=== PATIENT | female | born 1960 | race Caucasian/White ===

== ENCOUNTER 2022-02-26 14:17 | Outpatient (CLI) | payer OTHER, SELFPAY ==
--- NOTE | ~2022-02-26 | MM_ITS ---
EXAMINATION: MM screening [facility] BI w janene HISTORY: Screening mammogram TECHNIQUE: Craniocaudal and mediolateral oblique 3-D tomosynthesis images were obtained and synthetic 2-D images were generated. CAD analysis was submitted and interpreted. COMPARISON: 12/23/2018, 11/23/2018, 10/20/2017 BREAST PARENCHYMAL COMPOSITION: The breasts are almost entirely fatty. FINDINGS: No suspicious mass, calcification, or architectural distortion are identified in either rigo ast to suggest malignancy. There has been no suspicious interval change. IMPRESSION: 1. No mammographic evidence of malignancy. 2. Recommend routine screening mammography in one year. BI-RADS Category 1: Negative Reviewed, dictated and finalized at location A.
== END 2022-02-26 14:18 | disposition home or self-care (01) ==
LOC: CHSIMG 14:22
DX: Z12.31 Encounter for screening mammogram for malignant neoplasm of breast (principal)
CPT/HCPCS: 77063; 77067

== ENCOUNTER 2022-03-07 15:22 | Emergency (ER) | payer OTHER, SELFPAY ==
[2022-03-07] VITALS (18 sets, daily range): BP systolic 108–137; BP diastolic 71–108; PULSE 85–170; RESP 12–29; TEMP 36.8–36.9; O2SAT 90–97
--- NOTE | ~2022-03-07 | XR_ITS ---
XR chest 2V DATE: 03/07/2022 18:20 INDICATION: Rapid tachycardia. Cough. TECHNIQUE: PA and lateral views COMPARISON: 05/03/2019 portable AP chest FINDINGS: Normal heart size. No hilar or mediastinal enlargement. No pulmonary infiltrate or consolid ation, pleural effusion or pulmonary vascular congestion or pneumothorax. Diffuse idiopathic skeletal hyperostosis of the thoracic spine. Surgical clips, right upper quadrant, consistent with cholecystectomy. 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 Reviewed, dictated and finalized at location A.
[2022-03-07] MEDS: ADENOSINE IV SOLN 6 MG/2 ML VIAL IV PUSH (15:40)
--- NOTE | 2022-03-07 15:40 | ECG_ITS ---
Measurements Intervals [place] Rate: 167 P: 106 TN: 91 QRS: 12 QRSD: 82 T: -83 QT: 273 QTc: 455 Interpretive Statements ATRIAL FLUTTER/TACHYCARDIA WITH RAPID VENTRICULAR RESPONSE ST ABNORMALITY IN ANTEROLATERAL LEADS- CONSIDER ISCHEMIA OR RATE RELATED BASELINE ARTIFACT- I, II, AVR, AVF ABNORMAL ECG NO PREVIOUS ECG AVAILABLE FOR COMPARISON Electronically Signed On 03-07-2022 21:38:22 CDT by Aurelio Christie D.O.
[2022-03-07] MEDS: ADENOSINE IV SOLN 6 MG/2 ML VIAL 12 MG IV PUSH (15:48)
--- NOTE | 2022-03-07 15:51 | ED.ARRPALP ---
HPI - Arrhythmia/Palpitations General Chief Complaint: Arrhythmia/Palpitations Stated Complaint: racing heart Time Seen by Provider: 03/07/22 15:25 Source: patient and RN notes reviewed Mode of arrival: ambulatory Limitations: no limitations History of Present Illness complaint: heart racing and palpitations Onset (ago): hour(s) (12) Duration: constant Severity: similar to previous episodes Context: awoke with symptoms Arrhythmia history: SVT Associated symptoms: shortness of breath and cough Treatments prior to arrival: vagal maneuvers Related Data Home Medications Medication Instructions Recorded Confirmed clorazepate dipotassium 7.5 mg 7.5 mg PO PRN anxiety 03/07/22 03/07/22 tablet levothyroxine 25 mcg tablet 25 mcg PO DAILY 03/07/22 03/07/22 lorazepam 1 mg tablet 1 mg PO PRN PRN Anxiety 03/07/22 03/07/22 metoprolol tartrate 25 mg tablet 25 mg PO BID 03/07/22 03/07/22 Allergies Allergy/AdvReac Type Severity Reaction Status Date / Time No Known Allergies Allergy Verified 03/07/22 15:52 Review of Systems Review of Systems: All systems reviewed & are unremarkable except as noted in HPI and below Cardiovascular: Cardiovascular: Denies chest pain Respiratory: Respiratory: Reports as per HPI [facility] Past Medical History Medical History (Updated 03/07/22 @ 18:44 by Harsha Contreras MD) Benign essential HTN (07/14/17) DREW (generalized anxiety disorder) (07/14/17) Hypothyroidism (08/19/17) SVT (supraventricular tachycardia) Surgical History Surgical History (Updated 03/07/22 @ 18:43 by Harsha Contreras MD) History of section Hx of cholecystectomy Family History Family History Father Hypertension Family history of coronary artery disease Social History Social History Smoking status: Never smoker Second hand tobacco smoke exposure: No Alcohol intake: never Substance use: current Substance use type: prescription drug Has the Lack of Transportation Kept You From Medical Appointments or From Getting Medications?: No Within the Past 12 Months, Were You Worried Whether Your Food Would Run Out Before You Got Money to Buy More?: Never True What is Your Housing Situation Today?: I Have Housing Are You Worried That in the Next 2 Months, You May Not Have Your Own Housing to Live In?: No Do You Have Trouble Paying Your Heating Or Electricity Bill?: No Do You Have Trouble Paying For Medicines?: No Are You Currently Unemployed and Looking for Work?: No Highest Level of Education Completed: High School Diploma/GED Do You Have Trouble With Childcare or the Care of a Family Member?: No Spiritual care concerns: No Exam Const: General: no acute distress, alert and ill appearing acutely Nutritional Appearance: well nourished Orientation/consciousness: patient oriented x3 Limitations: no limitations HENMT: Ears: external ears normal Face/Nose/Sinus: Normal external nose present Face and sinus: normal facial exam Mouth: Yes moist mucous membranes Eyes: Conjunctivae: conjunctivae normal Pupils: Equal, round and reactive pupils present EOM: EOMs intact bilaterally Neck: Neck: normal visual inspection Resp: Effort & Inspection: normal respiratory effort Auscultation: clear to auscultation bilaterally Cardio: Rate: tachycardic Rhythm: regular rhythm GI: GI Palp: Yes Soft to palpation and No Tenderness to palpation present (GI) Auscultation: normal bowel sounds Back/Spine/Pelvis: Cervical Spine: cervical ROM normal Thoracic/Lumbar Spine: thoraco-lumbar ROM normal Skin: General skin exam: normal color Rashes: no rashes Neuro: General: patient oriented x3, moves all extremities, no focal motor deficits and CN's II-XI intact bilaterally Speech: normal speech Gait exam (Neuro): Normal gait present Extrem: General: normal to inspection and no clubbing, cyanos
[2022-03-07] MEDS: dilTIAZem HCl INJ 25 MG/5 ML VIAL 20 MG IV PUSH (15:57)
[2022-03-07] MEDS: dilTIAZem 100 MG/100 ML 100 MG/100 ML BAG 10 MG IV CONT (16:11)
[2022-03-07 16:30] LABS: Hematocrit 43.6 % (35.0-49.0); Hemoglobin 14.7 g/dL (12.0-15.0); Mean Corpuscular HGB Conc 33.7 g/dL (32.0-36.0); Mean Corpuscular Hemoglobin 28.2 pg (27.0-31.0); Mean Corpuscular Volume 83.5 fL (78.0-102.0); Mean Platelet Volume 9.4 fl (9.2-11.8); Platelet Count Result 203 K/mm3 (150-420); Red Blood Count 5.22 M/mm3 (4.20-5.40); Red Cell Distribution Width 12.9 % (11.6-14.4); White Blood Count 4.6 K/mm3 (4.8-10.8)
[2022-03-07 16:55] LABS: Alanine Aminotransferase 48 U/L (14-59); Albumin Level 3.5 g/dL (3.4-5.0); Alkaline Phosphatase 75 U/L (46-116); Anion Gap 11 mmol/L (8-16); Aspartate Amino Transferase 25 U/L (15-37); Band Neutrophils Percent 0 % (0-6); Basophils Percent Manual 0 % (0-1); Bilirubin,Total 0.4 mg/dL (0.00-1.00); Blood Urea Nitrogen 10 mg/dL (7-18); Calcium 9.1 mg/dL (8.5-10.1); Carbon Dioxide 26 mmol/L (21-32); Chloride 102 mmol/L (98-108); Eosinophils Absolute Manual 0.04 K/mm3 (0.02-0.5); Eosinophils Percent Manual 1 % (1-6); Estimated Glomerular Filt Rate 54; Glucose 97 mg/dL (70-99); Lymphocytes Absolute Manual 2.02 K/mm3 (1.1-4.5); Lymphocytes Percent Manual 44 % (18-44); Magnesium 1.7 mg/dL (1.8-2.4); Monocytes Absolute Manual 0.41 K/mm3 (0.1-0.90); Monocytes Percent Manual 9 % (3-9); NT Pro B Type Natriuretic Pept 617 pg/mL (0-125); Neutrophils Absolute Manual 2.11 K/mm3 (1.7-7.2); Neutrophils Percent Manual 46 % (46-73); Osmolality Calculated 287 mOsm/kg (285-295); Platelet Estimate Adequate (Adequate); Potassium 3.5 mmol/L (3.5-5.1); Sodium 139 mmol/L (136-145); Total Cells Counted 100; Total Protein 7.8 g/dL (6.4-8.2)
[2022-03-07 16:56] LABS: Atypical Lymphocytes Present
[2022-03-07 16:58] LABS: Troponin I 1443.8 ng/L (0.00-60.4)
[2022-03-07] MEDS: dilTIAZem HCl INJ 25 MG/5 ML VIAL IV PUSH (17:16)
[2022-03-07 17:25] LABS: Thyroid Stimulating Hormone 3.21 uIU/mL (0.36-3.74)
--- NOTE | 2022-03-07 17:38 | ECG_ITS ---
Measurements Intervals [place] Rate: 100 P: [place]: 0 QRS: 1 QRSD: 84 T: 63 QT: 343 QTc: 444 Interpretive Statements ATRIAL FLUTTER/TACHYCARDIA WITH RAPID VENTRICULAR RESPONSE LOW QRS VOLTAGE IN PRECORDIAL LEADS CANNOT RULE OUT SEPTAL INFARCT, AGE INDETERMINATE BORDERLINE ST-T WAVE ABNORMALITY- HIGH LATERAL LEADS ABNORMAL ECG COMPARED TO ECG 03/07/2022 15:40:15 HEART RATE HAS DECREASED MYOCARDIAL INFARCT FINDING NOW PRESENT Electronically Signed On 03-07-2022 21:39:51 CDT by Aurelio Christie D.O.
[2022-03-07] MEDS: ENOXAPARIN 100 MG/ML SYRINGE SUB-Q (18:19)
[2022-03-07] MEDS: BENZONATATE 100 MG CAPSULE 200 MG PO (19:07)
--- NOTE | 2022-03-07 19:21 | PC.NURSE ---
1830 meal provided, 1840 ate couple bites from sandwich and few chips. drank soda
== END 2022-03-07 19:24 | disposition short-term general hospital (02) ==
PROVIDERS: Emergency Provider Emergency Medicine
DX: I48.92 Unspecified atrial flutter (principal); R79.9 Abnormal finding of blood chemistry, unspecified; R06.02 Shortness of breath
CPT/HCPCS: 36415; 71046; 80053; 83735; 83880; 84443; 84484; 85025; 93005; 96365; 96366; 96372; 96375; 99285; A9270; J0153; J1650

== ENCOUNTER 2022-03-07 21:48 | Inpatient (IN) | payer OTHER, SELFPAY ==
--- NOTE | ~2022-03-07 | CT_ITS ---
EXAMINATION: CT diagnostic chest wo con DATE: 03/09/2022 12:42 INDICATION: persistent cough, abnl exam, negative chest xr TECHNIQUE: Computed tomography (CT) of the chest was performed without intravenous contrast. Automate d exposure control and iterative reconstruction technique were employed. The dose-length product was 551.48 mGy-cm. COMPARISON: None. FINDINGS: CHEST: Thoracic aorta: No significant dilation. Minimal arch calcification. Lung parenchyma and airways: Centrilobular groundglass opacities in the right lower lobe. Left basila r scar/atelectasis. Thoracic inlet, axillae and chest wall: No thyroid or soft tissue mass. No axillary lymphadenopathy. Mediastinum: No mass or lymphadenopathy. Heart and pericardium: Normal heart size. No pericardial effusion. Coronary artery calcifications: Absent. Pleura: No effusion or mass. Upper abdomen: No significant finding. Thoracic bones: No acute osseous finding in the chest. IMPRESSION: Right lower lobe opacities may represent atypical/infectious airways disease, bronchiolitis, or aspir ation. Reviewed, dictated and finalized at location K. GER IMPRESSION: Right lower lobe opacities may represent atypical/infectious airways disease, b ronchiolitis, or aspiration.
[2022-03-07 20:05] VITALS: BP 126/80; PULSE 91; RESP 20; TEMP 36.2; O2SAT 94; BMI 37.1
[2022-03-07 20:18] VITALS: BMI 37.8
--- NOTE | 2022-03-07 21:54 | PM.IMHP ---
H&P: HPI History of Present Illness Date/Time: 03/07/22 21:54 Chief Complaint: Arrhythmia palpitations. Narrative: This is a 62-year-old female patient who has a history of atrial flutter/atrial fib. And SVT. The patient has been on metoprolol and has been taking it faithfully. The patient stated that she used to go to Dr. Gardner but he no longer takes her insurance. The patient has been trying to get into but they are waiting for her records from Dr. North. The patient stated that she occasionally has SVT and usually last about an hour so and she is able to drink some cold water calm herself down and get the heart rate back into rhythm. Yesterday she said that she felt that she was in SVT from 8:00 to 9:00 a.m. came out of it. This morning she woke up at 3:20 a.m. this morning and she took her metoprolol at the normal time and tried the ice water and try to relax she then decided to go to [facility] at 4:00 p.m. this evening. She felt her heart racing and was having palpitations. She also was short of breath and she did try the vagal maneuver which did not work. Initially patient was given adenosine 6 mg IV push that did lower her heart rate but did not convert her. They gave her 2nd dose of adenosine at 12 mg and had no fact on her heart rate. The patient was given 20 mg of IV Cardizem and brought her rate down into the 90s. That her heart rate jumped back up in the 160s. Her Cardizem drip was increased from 10 mg and titrated up to 15 mg. She was then re bolused with Cardizem 25 mg and brought her heart rate down 80s and 90s. Patient continued with a Cardizem drip up to 15 milligrams/hour. She also received 100 mg of subcu Lovenox at [facility]. I did not speak to the attending however Dr. Villa spoke to the attending in accepted the patient. EN route to the hospital here at [facility] the patient was given another dose of adenosine 6 mg. Upon arrival her Cardizem drip ran out and she was bouncing back and forth between status rhythm and atrial flutter. We will resume her Cardizem drip. The patient is being admitted to inpatient status on the date of service of 03/07/2022. Review of Systems Review of Systems: See HPI All systems reviewed & are unremarkable except as noted in HPI and below Constitutional: Constitutional: Reports as per HPI and Reports no additional constitutional complaints Eyes: Eyes: Reports as per HPI and Reports no additional eye complaints ENT: Reports system reviewed and no additional complaints, except as documented and Reports Normal hearing present Cardiovascular: Cardiovascular: Reports no additional cardiovascular complaints Respiratory: Respiratory: Reports no additional respiratory complaints and Reports no additional respiratory complaints Gastrointestinal: Gastrointestinal: Reports as per HPI and Reports no additional gastrointestinal complaints Musculoskeletal: Musculoskeletal: Reports no additional musculoskeletal complaints Integumentary/Breasts: Skin/Breast: Reports system reviewed and no additional complaints, except as docu and Reports as per HPI Neurologic: Reports system reviewed and no additional complaints, except as documented, Reports as per HPI and Reports Normal hearing present Psychiatric: Psychiatric: Reports no additional psychiatric complaints and Reports as per HPI Endocrine: Endocrine: Reports no additional endocrine complaints Hematologic/Lymphatic: Hematologic/Lymphatic: Reports no additional hematologic/lymphatic complaints Allergic/Immunologic: Allergic/Immunologic: Reports no additional allergic/immunologic complaints [facility] Past Medical History Medical History (Updated 03/07/22 @ 22:04 by Briana Schmitt NP) DREW (generalized anxiety disorder) (07/14/17) Hypothyroidism (08/19/17) SVT (supraventricular tachycardia) Surgical History Surgical History (Updated 03/07/22 @ 18:43 by Harsha Contreras MD) History of section
--- NOTE | 2022-03-07 21:55 | ECG_ITS ---
Measurements Intervals [place] Rate: 74 P: 24 [place]: 173 QRS: 4 QRSD: 85 T: 258 QT: 388 QTc: 431 Interpretive Statements SINUS RHYTHM WITH SINUS ARRHYTHMIA LOW QRS VOLTAGE IN PRECORDIAL LEADS CANNOT RULE OUT SEPTAL INFARCT, AGE INDETERMINATE ST-T WAVE ABNORMALITY IN ANTERIOR LEADS- CONSIDER ISCHEMIA ABNORMAL ECG COMPARED TO ECG 03/07/2022 17:38:47 SINUS RHYTHM NOW PRESENT Electronically Signed On 03-08-2022 7:34:57 CDT by Aurelio Christie D.O.
[2022-03-07 22:30] VITALS: PULSE 93
[2022-03-07 22:34] LABS: Mean Platelet Volume 9.4 fl (7.4-10.4); Platelet Count Result 225 k/mm3 (150-375)
[2022-03-07 22:44] VITALS: PULSE 81
[2022-03-07] MEDS: CLORAZEPATE DIPOTASSIUM (*CRX) 3.75 MG TABLET 7.5 MG PO (22:44)
[2022-03-07] MEDS: SOTALOL HCL 80 MG TABLET PO (22:44)
[2022-03-07 22:46] LABS: Estimated CRCL calculation 71 ml/min; Estimated Glomerular Filt Rate > 60
[2022-03-08] VITALS (18 sets, daily range): BP systolic 115–132; BP diastolic 64–97; PULSE 53–81; RESP 16–18; TEMP 36.1–36.9; O2SAT 92–100
--- NOTE | 2022-03-08 | ECHO_ITS ---
Patient Info Name: Maria Fernanda Darnell Age: 62 years : 1960 Gender: Female Ht: 63 in Wt: 213 lbs BSA: 2.12 m2 HR: 58 bpm BP: 117 / 64 mmHg Exam Date: 03/08/2022 10:03 AM Exam Location: [facility] Pulmonary Patient Status: Outpatient Admit Date: 03/07/2022 Staff Ordering Physician: Briana Schmitt NP Veterinary Laboratory Technician: Haroon Mcneill RDCS Attending Provider: Chyna Villa MD Referring Physician: Keshia ODELL; Exam Type: CA echo doppler color flow Study Info Indications - irregular heart Complete two-dimensional, color flow and Doppler transthoracic echocardiogram is performed. Summary 1. Complete two-dimensional, color flow and Doppler transthoracic echocardiogram is performed. 2. Left ventricular chamber dimension is normal. 3. Left ventricular systolic function is normal, estimated at 60-65%. 4. The left ventricular diastolic function is normal. 5. E/e' 6 is not elevated. 6. Left atrial chamber dimension is mildly enlarged. 7. There is mild mitral valve regurgitation. Left Ventricle E/e' 6 is not elevated. Left ventricular chamber dimension is normal. Left ventricular systolic function is normal, estimated at 60-65%. The left ventricular diastolic function is normal. Right Ventricle Right ventricular systolic function is normal and with normal TAPSE 2.1 cm. Right ventricular chamber dimension is normal. Left Atria Left atrial chamber dimension is mildly enlarged. Right Atria Right atrial chamber dimension is normal. Aortic Valve The aortic valve is trileaflet. There is no aortic valve stenosis. There is no aortic valve regurgitation. Pulmonic Valve There is no pulmonic regurgitation. Mitral Valve There is no mitral valve stenosis. There is mild mitral valve regurgitation. Tricuspid Valve There is no tricuspid valve regurgitation. Pericardium/Pleural There is no pericardial effusion. Inferior Vena Cava Normal inferior vena cava with >50% collapse upon inspiration consistent with normal right atrial pressure, 5 mmHg. Aorta The aortic root size at the sinus of Valsalva is normal. Left Ventricular Outflow Tract Name Value Normal LVOT 2D LVOT Diameter 2.0 cm LVOT Doppler LVOT Peak Gradient 4 mmHg LVOT Mean Gradient 2 mmHg LVOT VTI 21 cm LVOT VTI/AV VTI Ratio 0.7 LVOT Stroke Volume 64 ml LVOT CO 3.6 l/min LVOT CI 1.7 l/min/m2 Mitral Valve Name Value Normal MV Doppler MV Peak Gradient 2 mmHg MV Mean Gradient 1 mmHg MV Decel Taliaferro 486 cm/s2 MV PHT 41 ms
[2022-03-08 00:32] LABS: Influenza A QL RT-PCR Negative (Negative); Influenza B QL RT-PCR Negative (Negative); RSV RNA, RT-PCR Negative (Negative); SARS-CoV-2 RNA PCR Negative
[2022-03-08 03:24] LABS: Basophils Percent Auto 0.6 % (0.2-1.2); Eosinophils Absolute Auto 0.1 K/mm3 (0-0.3); Eosinophils Percent Auto 1.7 % (0-4.4); Hematocrit 41.1 % (37.0-47.0); Hemoglobin 13.6 g/dL (12.0-15.0); Immature Granulocyte Absolute 0.02 K/mm3 (0.00-0.031); Immature Granulocyte Percent A 0.4 % (0-0.5); Lymphocytes Absolute Auto 1.96 K/mm3 (0.9-3.2); Mean Corpuscular HGB Conc 33.1 g/dl (32-36); Mean Corpuscular Hemoglobin 27.8 pg (26-34); Mean Platelet Volume 9.3 fl (7.4-10.4); Monocytes Absolute Auto 0.5 K/mm3 (0.1-0.6); Monocytes Percent Auto 9.8 % (2.6-8.5); Neutrophils Absolute Auto 2.2 K/mm3 (1.3-6.7); Neutrophils Percent Auto 46.5 % (45.5-73.1); Platelet Count Result 206 k/mm3 (150-375); Red Blood Count 4.89 M/mm3 (4.2-5.4); Red Cell Distribution Width 13.2 % (11.5-14.5); White Blood Count 4.8 K/mm3 (4.5-10.0)
[2022-03-08 03:36] LABS: Alanine Aminotransferase 38 U/L (6-35); Albumin Level 3.9 g/dL (3.5-5.1); Alkaline Phosphatase 64 U/L (38-126); Anion Gap 15 mmol/L (8-16); Aspartate Amino Transferase 41 U/L (14-36); Bilirubin,Total 0.3 mg/dL (0.2-1.3); Blood Urea Nitrogen 10 mg/dL (7-17); Calcium 8.1 mg/dL (8.4-10.2); Carbon Dioxide 25 mmol/L (22-30); Chloride 101 mmol/L (98-107); Estimated CRCL calculation 71 ml/min; Estimated Glomerular Filt Rate > 60; Glucose 139 mg/dL (65-110); Lactic Acid Reflex 1.4 mmol/L (0.7-2.0); Magnesium 1.9 mg/dL (1.6-2.3); Potassium 3.4 mmol/L (3.4-5.0); Sodium 141 mmol/L (137-145)
[2022-03-08 03:43] LABS: Atypical Lymphocytes Present; Platelet Estimate Adequate (Adequate); Schistocytes None Seen (NORMAL)
[2022-03-08] MEDS: ENOXAPARIN 100 MG/ML SYRINGE SUB-Q (05:31)
[2022-03-08 06:35] LABS: Free T4 Free Thyroxine Reflex 1.21 ng/dL (0.78-2.19)
[2022-03-08] MEDS: LEVOTHYROXINE SODIUM 25 MCG TABLET PO (07:33)
[2022-03-08] MEDS: LORazepam (*CRX) 1 MG TABLET PO (07:37)
--- NOTE | 2022-03-08 08:30 | PM.CNCAR ---
Assessment and Plan Assessment and plan (1) Paroxysmal atrial flutter: Code(s): I48.92 - Unspecified atrial flutter Status: Acute Assessment and Plan: In sinus rhythm now. [id number] 1. On Lovenox 1 mg/kg SQ q 12 hrs. Started 03/07/22 Sotalol 80 mg PO every 12 hours loading. Check EKG 1-2 hours post each dose to check QT interval. Obtain echo. If no wall motion abnormality, then will stop Lovenox, and start Aspirin EC 325 mg daily instead. (2) PSVT (paroxysmal supraventricular tachycardia): Code(s): I47.1 - Supraventricular tachycardia Status: Acute Assessment and Plan: Same as #1. (3) Elevated troponin: Code(s): R77.8 - Other specified abnormalities of plasma proteins Status: Acute Assessment and Plan: Trended down from peak 2.6. EKG does shows some anterior ischemia but could be due to demand ischemia from rapid HR. No symptoms to suggest ACS. Obtain echo. History of Present Illness History of Present Illness Consult date/time: 03/08/22 08:30 Reason For Visit: svt, afib Narrative: 62 yr old woman presented to [facility] then transferred here for atrial flutter/fib/SVT. She used to see Dr. Gardner but they no longer accept her insurance. She has a history of PSVT since 2017 on Metoprolol and treated with vagal maneuvers. She has anxiety. Reports at 3:30 am yesterday she was awake and felt fast HR c/w her SVT with symptoms of fast HR and fatigue. She tried vagal maneuvers and drinking ice water but it continued so she presented to [facility]. They tried Adenosine but did not work. Then they tried Cardizem and she continued to be in rapid HR but did seem to go from initially atrial flutter/tachycardia, then atrial fib, then sinus rhythm. She was started on Sotalol last night and in sinus rhythm currently. She normally can walk 1 mile without any problems. She snores but does not have daytime sleepiness. In last week she had URI treated with Augmentin, then Z-Jett, then back to Augmentin, but she continued to have fevers/chills and sinus drainage. Review of Systems Review of Systems: All systems reviewed & are unremarkable except as noted in HPI and below Constitutional: Constitutional: Reports as per HPI, Reports chills and Reports fever(s) Cardiovascular: Cardiovascular: Reports as per HPI, Denies chest pain, Reports irregular heart rhythm, Denies leg edema and Denies lightheadedness Respiratory: Respiratory: Reports as per HPI and Denies dyspnea Gastrointestinal: Gastrointestinal: Reports as per HPI and Denies abdominal pain Genitourinary: Genitourinary: Reports as per HPI and Denies dysuria Musculoskeletal: Musculoskeletal: Reports as per HPI Neurologic: Reports as per HPI, Denies dizziness and Denies syncope [facility] Past Medical History Medical History (Updated 03/08/22 @ 08:37 by Aurelio Christie DO) DREW (generalized anxiety disorder) (07/14/17) Hypothyroidism (08/19/17) SVT (supraventricular tachycardia) Surgical History Surgical History (Updated 03/07/22 @ 18:43 by Harsha Contreras MD) History of section Hx of cholecystectomy Family History Family History Father Hypertension Family history of coronary artery disease Social History Social History (Updated 03/07/22 @ 22:01 by Briana Schmitt NP) Social History: The patient lives with her and they have 1 child. The patient is a lifelong nonsmoker. She works an office doing bookkeeping. She does not drink or use illicit drugs. Her is a durable power head of sales for healthcare. Code status full code Smoking status: Never smoker Second hand tobacco smoke exposure: No Alcohol intake: never Substance use: current Substance use type: prescription drug Has the Lack of Transportation Kept You From Medical Appointments or From Getting Medications?: No Within the Past 12 Months, Were You Worried Wheth
[2022-03-08] MEDS: SOTALOL HCL 80 MG TABLET PO (08:40)
[2022-03-08] MEDS: ACETAMINOPHEN 325 MG TABLET 650 MG PO (08:40)
[2022-03-08 08:42] LABS: Total Triiodothyronine (T3) 1.66 NG/ML (0.97-1.69)
--- NOTE | 2022-03-08 10:30 | ECG_ITS ---
Measurements Intervals [place] Rate: 53 P: 22 TN: 158 QRS: -3 QRSD: 84 T: -37 QT: 454 QTc: 430 Interpretive Statements SINUS BRADYCARDIA LOW QRS VOLTAGE IN PRECORDIAL LEADS BORDERLINE ST-T WAVE ABNORMALITY- ANTEROLAT/INF LEADS BORDERLINE ECG COMPARED TO ECG 03/07/2022 23:56:46 SINUS BRADYCARDIA NOW PRESENT Electronically Signed On 03-08-2022 12:22:02 CDT by Aurelio Christie D.O.
[2022-03-08] MEDS: POTASSIUM CHLORIDE 20 MEQ TABLET 40 MEQ PO (10:35)
[2022-03-08] MEDS: ASPIRIN 325 MG ENTERIC TABLET PO (14:30)
--- NOTE | 2022-03-08 16:17 | PM.IMPN ---
Progress Note: A&P Assessment and Plan (1) Atrial flutter with rapid ventricular response: Code(s): I48.92 - Unspecified atrial flutter Status: Inactive Assessment and Plan: Continue with patient's metoprolol. -I did continue with her Cardizem but at a lower rate. -will get an EKG. -I will consult Cardiology and their recommendations would greatly be appreciated. -trend troponins. -echo. 03/08/2022 interval history: 62-year-old female presented with a new onset atrial fibrillation initially patient was started on diltiazem drip upon arrival to [facility] and transferred to the hospital, patient was seen by Cardiology, patient converted to sinus rhythm, italian tutor started the patient sotalol patient [id number] 1 patient anticoagulated with Lovenox 1 milligram/kilogram b.i.d., patient had a cardiac echo and results are pending and further recommendation to follow, patient states feeling much better compared to when she arrived not a short of breath and denies any chest pain (2) Elevated troponin: Code(s): R77.8 - Other specified abnormalities of plasma proteins Status: Inactive Assessment and Plan: Trend troponins. She may have elevated troponin due to the fast heart rate. (3) SVT (supraventricular tachycardia): Code(s): I47.1 - Supraventricular tachycardia Status: Acute Assessment and Plan: -the patient had 1 does of a 12 mg in between 2 6 mg of adenosine (4) DREW (generalized anxiety disorder): Onset Date: 07/14/17 Code(s): F41.1 - Generalized anxiety disorder Status: Acute Assessment and Plan: -the patient takes lorazepam in the morning and clorazepate at night. (5) Hypothyroidism: Onset Date: 08/19/17 Code(s): E03.9 - Hypothyroidism, unspecified Status: Acute Assessment and Plan: Check thyroid level continue with levothyroxine. Subjective Date/time seen: 03/08/22 16:17 03/08/2022 interval history: 62-year-old female presented with a new onset atrial fibrillation initially patient was started on diltiazem drip upon arrival to [facility] and transferred to the hospital, patient was seen by Cardiology, patient converted to sinus rhythm, italian tutor started the patient sotalol patient [id number] 1 patient anticoagulated with Lovenox 1 milligram/kilogram b.i.d., patient had a cardiac echo and results are pending and further recommendation to follow, patient states feeling much better compared to when she arrived not a short of breath and denies any chest pain Review of Systems Review of Systems: All systems reviewed & are unremarkable except as noted in HPI and below Objective Data Vital Signs Vital Signs: Vital Signs - 24 hr 03/07/22 20:05 03/07/22 20:18 03/07/22 22:44 Temperature 97.1 F L Pulse Rate 91 81 Respiratory Rate 20 Blood Pressure 126/80 Pulse Oximetry 94 Oxygen Delivery Room Air Oxygen Flow Rate 03/07/22 22:30 03/08/22 00:00 03/08/22 00:00 Temperature 97.7 F Pulse Rate 93 81 72 Respiratory Rate 16 Blood Pressure 115/81 Pulse Oximetry 94 Oxygen Delivery Oxygen Flow Rate 03/08/22 00:00 03/08/22 02:00 03/08/22 04:00 Temperature Pulse Rate 81 60 58 L Respiratory Rate 16 Blood Pressure Pulse Oximetry 94 Oxygen Delivery Room Air Oxygen Flow Rate 03/08/22 04:00 03/08/22 04:00 03/08/22 06:00 Temperature 97 F L Pulse Rate 63 60 Respiratory Rate 18 Blood Pressure 117/64 Pulse Oximetry 94 100 Oxygen Delivery Nasal Cannula Oxygen Flow Rate 4 03/08/22 07:45 03/08/22 08:40 03/08/22 08:00 Temperature 98.5 F Pulse Rate 61 63 71 Respiratory Rate 16 Blood Pressure 131/78 Pulse Oximetry 98 Oxygen Delivery Oxygen Flow Rate 03/08/22 08:00 03/08/22 10:00 03/08/22 11:36 Temperature Pulse Rate 53 L Respiratory Rate Blood Pressure
[2022-03-08] MEDS: CLORAZEPATE DIPOTASSIUM (*CRX) 3.75 MG TABLET 7.5 MG PO (21:11)
[2022-03-08] MEDS: SOTALOL HCL 40 MG TABLET PO (21:17)
--- NOTE | 2022-03-08 22:55 | ECG_ITS ---
Measurements Intervals [place] Rate: 56 P: 28 [place]: 162 QRS: 9 QRSD: 100 T: -11 QT: 453 QTc: 440 Interpretive Statements SINUS BRADYCARDIA LOW QRS VOLTAGE IN PRECORDIAL LEADS BORDERLINE ST-T WAVE ABNORMALITY- ANTEROLAT/INF LEADS BORDERLINE ECG COMPARED TO ECG 03/08/2022 10:30:35 NO SIGNIFICANT CHANGES Electronically Signed On 03-09-2022 7:22:01 TRANSMISSION INSPECTOR by Aurelio Christie D.O.
[2022-03-09] VITALS (16 sets, daily range): BP systolic 113–120; BP diastolic 69–77; PULSE 46–75; RESP 16–20; TEMP 35.7–37; O2SAT 94–100
--- NOTE | 2022-03-09 01:04 | PC.NURSE ---
Daylight Savings Time For Daylight Savings Time Ending in the Fall - Clocks are moved back. For Daylight Savings Time Beginning in the Spring - Clocks are moved ahead. For [facility], the time of change occurs at 0200 hrs. Time is taken from the ware server. This entry on the patient's chart recognizes the change in time reflected during documentation. Example: 2 entries for vital signs may be charted for 0200 hrs.
[2022-03-09 05:37] LABS: Hematocrit 40.7 % (37.0-47.0); Hemoglobin 12.9 g/dL (12.0-15.0); Mean Corpuscular HGB Conc 31.7 g/dl (32-36); Mean Corpuscular Hemoglobin 27.4 pg (26-34); Mean Corpuscular Volume 86.6 fl (80-100); Mean Platelet Volume 9.7 fl (7.4-10.4); Platelet Count Result 214 k/mm3 (150-375); Red Cell Distribution Width 13.2 % (11.5-14.5)
[2022-03-09 05:53] LABS: Anion Gap 13 mmol/L (8-16); Blood Urea Nitrogen 13 mg/dL (7-17); Calcium 8.3 mg/dL (8.4-10.2); Carbon Dioxide 29 mmol/L (22-30); Chloride 103 mmol/L (98-107); Estimated CRCL calculation 63 ml/min; Estimated Glomerular Filt Rate > 60; Glucose 99 mg/dL (65-110); Magnesium 2.1 mg/dL (1.6-2.3); Potassium 3.9 mmol/L (3.4-5.0); Sodium 145 mmol/L (137-145)
--- NOTE | 2022-03-09 07:14 | PM.PNCARD ---
Progress Note: A&P Assessment and Plan (1) Paroxysmal atrial flutter: Code(s): I48.92 - Unspecified atrial flutter Status: Acute Assessment and Plan: In sinus rhythm now. [id number] 1. On Lovenox 1 mg/kg SQ q 12 hrs. Started 03/07/22 Sotalol 80 mg PO every 12 hours loading. Due to bradycardia, Sotalol decreased to 40 mg every 12 hours. Check EKG 1-2 hours post each dose to check QT interval. 03/08/22 Echo: EF60-65%, mild LAE, mild MR. Stopped Lovenox. Started Aspirin EC 325 mg daily. Anticipate 1 more night stay. (2) PSVT (paroxysmal supraventricular tachycardia): Code(s): I47.1 - Supraventricular tachycardia Status: Acute Assessment and Plan: Same as #1. (3) Elevated troponin: Code(s): R77.8 - Other specified abnormalities of plasma proteins Status: Acute Assessment and Plan: Trended down from peak 2.6. EKG does shows some anterior ischemia but resolved, could be due to demand ischemia from rapid HR. No symptoms to suggest ACS. No wall motion abnormalities on echo. Subjective Date/time seen: 03/09/22 07:14 Interval history: Denies any more palpitations since being here. No chest pain or sob. Exam Const: General: cooperative, healthy appearing and comfortable Orientation/consciousness: oriented to person, oriented to place and oriented to time Resp: Auscultation: clear to auscultation bilaterally, no crackles, no rales, no rhonchi and no wheezes Cardio: Rate: bradycardic Rhythm: regular rhythm Heart sounds: no murmurs Peripheral pulses: dorsalis pedis present Neuro: General: oriented to person, oriented to place and oriented to time Extrem: Right lower extremity: no edema Left lower extremity: no edema Objective Data Vital Signs Vital Signs: Vital Signs - 24 hr 03/08/22 08:40 03/08/22 10:00 03/08/22 11:36 Temperature Pulse Rate 63 53 L Respiratory Rate Blood Pressure Pulse Oximetry 96 Oxygen Delivery Nasal Cannula Oxygen Flow Rate 4 03/08/22 11:36 03/08/22 12:00 03/08/22 14:00 Temperature 98.2 F Pulse Rate 59 L 53 L 62 Respiratory Rate 18 Blood Pressure 116/74 Pulse Oximetry 95 Oxygen Delivery Oxygen Flow Rate 03/08/22 16:00 03/08/22 16:00 03/08/22 16:00 Temperature 98.1 F Pulse Rate 56 L 64 Respiratory Rate 16 Blood Pressure 129/79 Pulse Oximetry 100 96 Oxygen Delivery Nasal Cannula Oxygen Flow Rate 4 03/08/22 18:00 03/08/22 20:00 03/08/22 21:17 Temperature 97.4 F L Pulse Rate 65 54 L 58 L Respiratory Rate 16 Blood Pressure 132/97 H Pulse Oximetry 99 Oxygen Delivery Oxygen Flow Rate 03/08/22 20:00 03/08/22 20:00 03/08/22 23:31 Temperature Pulse Rate 56 L Respiratory Rate Blood Pressure Pulse Oximetry 92 97 Oxygen Delivery Nasal Cannula Nasal Cannula Oxygen Flow Rate 4 4 03/08/22 22:00 03/08/22 23:34 03/09/22 00:00 Temperature 97.6 F Pulse Rate 56 L 73 53 L Respiratory Rate 16 Blood Pressure 124/72 Pulse Oximetry 97 Oxygen Delivery Oxygen Flow Rate 03/09/22 02:00 03/09/22 04:00 03/09/22 04:00 Temperature 97.6 F Pulse Rate 52 L 52 L Respiratory Rate 18 Blood Pressure 113/69 Pulse Oximetry 97 99 Oxygen Delivery Nasal Cannula Oxygen Flow Rate 2 03/09/22 04:00 03/09/22 06:00 Temperature Pulse Rate 46 L 48 L Respiratory Rate Blood Pressure Pulse Oximetry Oxygen Delivery Oxygen Flow Rate Intake/Output Intake/Output: Intake & Output 03/06/22 03/07/22 03/08/22 03/09/22 23:59 23:59 23:59 22:59 Intake Total 1292 50 Output Total 800 600 Balance 492 -550 Meds/Results Medications: Active Medications Generic Name Dose Route Start Last Admin Trade Name Freq PRN Reason Stop Dose Admin Acetaminophen 650 mg 03/08/22 08:33 03/08/22 08:40 Acetaminophen 325 Mg Tablet PO 650 mg Q6H PRN Administration Mild Pain (1-3) or Fever Aspirin 325 mg
[2022-03-09] MEDS: LORazepam (*CRX) 1 MG TABLET PO (08:44)
[2022-03-09] MEDS: ASPIRIN 325 MG ENTERIC TABLET PO (08:44)
[2022-03-09] MEDS: SOTALOL HCL 40 MG TABLET PO ×2 (08:44→20:25)
--- NOTE | 2022-03-09 10:30 | ECG_ITS ---
Measurements Intervals [place] Rate: 53 P: -18 ND: 132 QRS: 3 QRSD: 89 T: -19 QT: 417 QTc: 392 Interpretive Statements SINUS BRADYCARDIA LOW QRS VOLTAGE IN PRECORDIAL LEADS CONSIDER INFERIOR INFARCT, AGE INDETERMINATE BORDERLINE ST-T WAVE ABNORMALITY- ANTEROLAT/HIGH LAT LEADS ABNORMAL ECG COMPARED TO ECG 03/08/2022 23:06:08 NO SIGNIFICANT CHANGES Electronically Signed On 03-09-2022 13:58:37 [employer] by Aurelio Christie D.O.
--- NOTE | 2022-03-09 11:39 | PM.IMPN ---
Progress Note: A&P Assessment and Plan (1) Paroxysmal atrial flutter: Code(s): I48.92 - Unspecified atrial flutter Status: Acute Assessment and Plan: Echo unremarkable Continue Eliquis and sotalol on telemetry March 09 is day 2 sotalol (2) SVT (supraventricular tachycardia): Code(s): I47.1 - Supraventricular tachycardia Status: Acute Assessment and Plan: Sotalol (3) Cough: Code(s): R05.9 - Cough, unspecified Status: Acute Assessment and Plan: Three weeks duration with abnormal pulmonary exam and negative chest x-ray Noncontrast CT chest (4) DREW (generalized anxiety disorder): Onset Date: 07/14/17 Code(s): F41.1 - Generalized anxiety disorder Status: Acute Assessment and Plan: -the patient takes lorazepam in the morning and clorazepate at night. (5) Hypothyroidism: Onset Date: 08/19/17 Code(s): E03.9 - Hypothyroidism, unspecified Status: Acute Assessment and Plan: Check thyroid level continue with levothyroxine. Subjective Date/time seen: 03/09/22 11:39 Atrial flutter. Monitoring on sotalol. Sinus rhythm. No complaints except dry cough for 3 weeks. Very bothersome. Some nasal congestion. Some nasal drainage. Appetite has been good. No chest pain or GI or complaints. No shortness of breath now. Was short of breath with palpitations on admission. No swelling. No abnormal bleeding. No fevers chills or night sweats noted. Has had 2- chest x-rays and at least 2- COVID tests since onset of symptoms. Review of Systems Review of Systems: All systems reviewed & are unremarkable except as noted in HPI and below Exam Narrative: Alert and oriented to person place and time. No acute distress. Sclerae nonicteric. Neck no JVD. Chest bibasilar crackles more so in the right lung. No tachypnea. Heart normal S1-S2. Rate regular. No audible murmur. Extremities without edema cyanosis or clubbing. Abdomen bowel sounds positive soft nontender. Musculoskeletal no gross deformity to visual inspection. Neurologic cranial nerves symmetric to visual inspection Objective Data Vital Signs Vital Signs: Vital Signs - 24 hr 03/08/22 14:00 03/08/22 16:00 03/08/22 16:00 Temperature 98.1 F Pulse Rate 62 56 L Respiratory Rate 16 Blood Pressure 129/79 Pulse Oximetry 100 96 Oxygen Delivery Nasal Cannula Oxygen Flow Rate 4 03/08/22 16:00 03/08/22 18:00 03/08/22 20:00 Temperature 97.4 F L Pulse Rate 64 65 54 L Respiratory Rate 16 Blood Pressure 132/97 H Pulse Oximetry 99 Oxygen Delivery Oxygen Flow Rate 03/08/22 21:17 03/08/22 20:00 03/08/22 20:00 Temperature Pulse Rate 58 L 56 L Respiratory Rate Blood Pressure Pulse Oximetry 92 Oxygen Delivery Nasal Cannula Oxygen Flow Rate 4 03/08/22 23:31 03/08/22 22:00 03/08/22 23:34 Temperature 97.6 F Pulse Rate 56 L 73 Respiratory Rate 16 Blood Pressure 124/72 Pulse Oximetry 97 97 Oxygen Delivery Nasal Cannula Oxygen Flow Rate 4 03/09/22 00:00 03/09/22 02:00 03/09/22 04:00 Temperature Pulse Rate 53 L 52 L Respiratory Rate Blood Pressure Pulse Oximetry 97 Oxygen Delivery Nasal Cannula Oxygen Flow Rate 2 03/09/22 04:00 03/09/22 04:00 03/09/22 06:00 Temperature 97.6 F Pulse Rate 52 L 46 L 48 L Respiratory Rate 18 Blood Pressure 113/69 Pulse Oximetry 99 Oxygen Delivery Oxygen Flow Rate 03/09/22 08:00 03/09/22 08:44 03/09/22 08:00 Temperature 96.6 F L Pulse Rate 61 61 Respiratory Rate 16 Blood Pressure 119/71 Pulse Oximetry 100 Oxygen Delivery Room Air Oxygen Flow Rate Intake/Output Intake/Output: Intake & Output 03/06/22 03/07/22 03/08/22 03/09/22 23:59 23:59 23:59 22:59 Intake Total 1292 290 Output Total 800 600 Balance 492 -310 Meds/Results Medications: Active Medications Generic Name Dose Route St
--- NOTE | 2022-03-09 18:11 | PC.NURSE ---
On 03/09/22, the student, Galilea Flores, provided care and completed [employer] documentation on this patient. I have reviewed the student's documentation and agree with the findings.
[2022-03-09] MEDS: BENZONATATE 100 MG CAPSULE 200 MG PO (20:20)
[2022-03-09] MEDS: CLORAZEPATE DIPOTASSIUM (*CRX) 3.75 MG TABLET 7.5 MG PO (20:24)
--- NOTE | 2022-03-09 22:35 | ECG_ITS ---
Measurements Intervals [place] Rate: 56 P: 20 CT: 167 QRS: -2 QRSD: 95 T: -15 QT: 434 QTc: 422 Interpretive Statements SINUS BRADYCARDIA LOW QRS VOLTAGE IN PRECORDIAL LEADS CONSIDER INFERIOR INFARCT, AGE INDETERMINATE NONSPECIFIC ST & T-WAVE ABNORMALITY- ANTEROLAT/HIGH LAT LEADS BASELINE ARTIFACT- I, II, AVR, AVL, AVF ABNORMAL ECG COMPARED TO ECG 03/09/2022 10:31:07 NO SIGNIFICANT CHANGES Electronically Signed On 03-10-2022 11:58:17 FEATURES EDITOR by Aurelio Christie D.O.
[2022-03-10] VITALS (10 sets, daily range): BP systolic 91–144; BP diastolic 43–78; PULSE 52–76; RESP 20; TEMP 36.1–37.3; O2SAT 95–100
[2022-03-10 04:55] LABS: Hematocrit 38.9 % (37.0-47.0); Hemoglobin 12.2 g/dL (12.0-15.0); Mean Corpuscular HGB Conc 31.4 g/dl (32-36); Mean Corpuscular Hemoglobin 26.6 pg (26-34); Mean Corpuscular Volume 84.9 fl (80-100); Mean Platelet Volume 9.3 fl (7.4-10.4); Platelet Count Result 241 k/mm3 (150-375); Red Blood Count 4.58 M/mm3 (4.2-5.4); Red Cell Distribution Width 13.1 % (11.5-14.5)
[2022-03-10 05:04] LABS: Anion Gap 9 mmol/L (8-16); Blood Urea Nitrogen 14 mg/dL (7-17); Calcium 8.3 mg/dL (8.4-10.2); Carbon Dioxide 27 mmol/L (22-30); Chloride 105 mmol/L (98-107); Estimated CRCL calculation 63 ml/min; Estimated Glomerular Filt Rate > 60; Glucose 94 mg/dL (65-110); Potassium 4.1 mmol/L (3.4-5.0); Sodium 141 mmol/L (137-145)
[2022-03-10] MEDS: LEVOTHYROXINE SODIUM 25 MCG TABLET PO (06:19)
--- NOTE | 2022-03-10 07:44 | PM.PNCARD ---
Progress Note: A&P Assessment and Plan (1) Paroxysmal atrial flutter: Code(s): I48.92 - Unspecified atrial flutter Status: Acute Assessment and Plan: In sinus rhythm now. [id number] 1. On Lovenox 1 mg/kg SQ q 12 hrs. Started 03/07/22 Sotalol 80 mg PO every 12 hours loading. Due to bradycardia, Sotalol decreased to 40 mg every 12 hours. Check EKG 1-2 hours post each dose to check QT interval. 03/08/22 Echo: EF60-65%, mild LAE, mild MR. Stopped Lovenox. Started Aspirin EC 325 mg daily. From cardiology standpoint may d/c home and f/u with me in 1 week at [facility]. (2) PSVT (paroxysmal supraventricular tachycardia): Code(s): I47.1 - Supraventricular tachycardia Status: Acute Assessment and Plan: Same as #1. (3) Elevated troponin: Code(s): R77.8 - Other specified abnormalities of plasma proteins Status: Acute Assessment and Plan: Trended down from peak 2.6. EKG does shows some anterior ischemia but resolved, could be due to demand ischemia from rapid HR. No symptoms to suggest ACS. No wall motion abnormalities on echo. (4) Cough: Code(s): R05.9 - Cough, unspecified Status: Acute Assessment and Plan: 03/09/22 CT chest shows RLL infiltrate, possible bronchitis/atypical pneumonia. May need antibiotics or if not improving a pulm consult. Treatment including with inhaler and cough suppressant as per hospitalist. Subjective Date/time seen: 03/10/22 07:44 Interval history: She has chronic cough and not feeling well from it. Denies any more palpitations since being here. No chest pain or sob. Exam Const: General: cooperative, healthy appearing and comfortable Orientation/consciousness: oriented to person, oriented to place and oriented to time Resp: Auscultation: not clear to auscultation bilaterally, no crackles, no rales, no rhonchi and wheezes left lower and left upper Cardio: Rate: regular rate Rhythm: regular rhythm Heart sounds: no murmurs Peripheral pulses: dorsalis pedis present Neuro: General: oriented to person, oriented to place and oriented to time Extrem: Right lower extremity: no edema Left lower extremity: no edema Objective Data Vital Signs Vital Signs: Vital Signs - 24 hr 03/09/22 08:00 03/09/22 08:44 03/09/22 08:00 Temperature 96.6 F L Pulse Rate 61 61 Respiratory Rate 16 Blood Pressure 119/71 Pulse Oximetry 100 Oxygen Delivery Room Air 03/09/22 12:00 03/09/22 12:00 03/09/22 08:00 Temperature 96.3 F L Pulse Rate 65 56 L Respiratory Rate 20 Blood Pressure 113/74 Pulse Oximetry 97 Oxygen Delivery Room Air 03/09/22 10:00 03/09/22 12:00 03/09/22 14:00 Temperature Pulse Rate 56 L 59 L 68 Respiratory Rate Blood Pressure Pulse Oximetry Oxygen Delivery 03/09/22 16:00 03/09/22 16:00 03/09/22 18:07 Temperature 98.2 F Pulse Rate 75 Respiratory Rate 20 Blood Pressure 116/71 Pulse Oximetry 94 97 Oxygen Delivery Room Air Room Air 03/09/22 16:00 03/09/22 18:00 03/09/22 20:25 Temperature Pulse Rate 54 L 58 L 62 Respiratory Rate Blood Pressure Pulse Oximetry Oxygen Delivery 03/09/22 20:31 03/09/22 20:00 03/09/22 20:00 Temperature 98.6 F Pulse Rate 69 56 L Respiratory Rate 20 Blood Pressure 120/77 Pulse Oximetry 99 Oxygen Delivery Room Air 03/09/22 22:00 03/10/22 00:09 03/10/22 00:00 Temperature 99.1 F Pulse Rate 56 L 52 L 53 L Respiratory Rate 20 Blood Pressure 91/55 L Pulse Oximetry 100 Oxygen Delivery 03/10/22 00:00 03/10/22 02:00 03/10/22 05:22 Temperature 98.6 F Pulse Rate 52 L 76 Respiratory Rate 20 Blood Pressure 127/43 L Pulse Oximetry 99 Oxygen Delivery Room Air 03/10/22 04:00 03/10/22 06:00 03/10/22 04:00 Temperature Pulse Rate 53 L 53 L Respiratory Rate Blood Pressure Pulse Oximetry Oxygen Delivery Room Air Intake/Output Intake/Output: I
[2022-03-10] MEDS: FLUTICASONE PROP 44 MCG (*SP) 10.6 GM 2 PUFF INHALATION (08:49)
[2022-03-10] MEDS: BENZONATATE 100 MG CAPSULE 200 MG PO (09:17)
[2022-03-10] MEDS: ASPIRIN 325 MG ENTERIC TABLET PO (09:17)
[2022-03-10] MEDS: SOTALOL HCL 40 MG TABLET PO (09:17)
[2022-03-10] MEDS: LORazepam (*CRX) 1 MG TABLET PO (09:22)
--- NOTE | 2022-03-10 10:30 | ECG_ITS ---
Measurements Intervals [place] Rate: 54 P: 17 MS: 177 QRS: 1 QRSD: 89 T: -30 QT: 415 QTc: 394 Interpretive Statements SINUS BRADYCARDIA LOW QRS VOLTAGE IN PRECORDIAL LEADS BORDERLINE ST-T WAVE ABNORMALITY- ANTEROLAT/INF LEADS BORDERLINE ECG COMPARED TO ECG 03/09/2022 10:31:07 NO SIGNIFICANT CHANGES Electronically Signed On 03-10-2022 10:30:47 [employer] by Aurelio Christie D.O.
--- NOTE | 2022-03-10 10:36 | PM.IMPN ---
Progress Note: A&P Assessment and Plan (1) Paroxysmal atrial flutter: Code(s): I48.92 - Unspecified atrial flutter Status: Acute Assessment and Plan: Echo unremarkable Continue Eliquis and sotalol on telemetry March 09 is day 2 sotalol (2) SVT (supraventricular tachycardia): Code(s): I47.1 - Supraventricular tachycardia Status: Acute Assessment and Plan: Sotalol (3) Cough: Code(s): R05.9 - Cough, unspecified Status: Acute Assessment and Plan: Three weeks duration with abnormal pulmonary exam and negative chest x-ray Noncontrast CT chest (4) DREW (generalized anxiety disorder): Onset Date: 07/14/17 Code(s): F41.1 - Generalized anxiety disorder Status: Acute Assessment and Plan: -the patient takes lorazepam in the morning and clorazepate at night. (5) Hypothyroidism: Onset Date: 08/19/17 Code(s): E03.9 - Hypothyroidism, unspecified Status: Acute Assessment and Plan: Check thyroid level continue with levothyroxine. Subjective Date/time seen: 03/10/22 10:36 Review of Systems Review of Systems: All systems reviewed & are unremarkable except as noted in HPI and below Exam Narrative: Alert and oriented to person place and time. No acute distress. Sclerae nonicteric. Neck no JVD. Chest bibasilar crackles more so in the right lung. No tachypnea. Heart normal S1-S2. Rate regular. No audible murmur. Extremities without edema cyanosis or clubbing. Abdomen bowel sounds positive soft nontender. Musculoskeletal no gross deformity to visual inspection. Neurologic cranial nerves symmetric to visual inspection Objective Data Vital Signs Vital Signs: Vital Signs - 24 hr 03/09/22 12:00 03/09/22 12:00 03/09/22 12:00 Temperature 96.3 F L Pulse Rate 65 59 L Respiratory Rate 20 Blood Pressure 113/74 Pulse Oximetry 97 Oxygen Delivery Room Air 03/09/22 14:00 03/09/22 16:00 03/09/22 16:00 Temperature 98.2 F Pulse Rate 68 75 Respiratory Rate 20 Blood Pressure 116/71 Pulse Oximetry 94 Oxygen Delivery Room Air 03/09/22 18:07 03/09/22 16:00 03/09/22 18:00 Temperature Pulse Rate 54 L 58 L Respiratory Rate Blood Pressure Pulse Oximetry 97 Oxygen Delivery Room Air 03/09/22 20:25 03/09/22 20:31 03/09/22 20:00 Temperature 98.6 F Pulse Rate 62 69 Respiratory Rate 20 Blood Pressure 120/77 Pulse Oximetry 99 Oxygen Delivery Room Air 03/09/22 20:00 03/09/22 22:00 03/10/22 00:09 Temperature 99.1 F Pulse Rate 56 L 56 L 52 L Respiratory Rate 20 Blood Pressure 91/55 L Pulse Oximetry 100 Oxygen Delivery 03/10/22 00:00 03/10/22 00:00 03/10/22 02:00 Temperature Pulse Rate 53 L 52 L Respiratory Rate Blood Pressure Pulse Oximetry Oxygen Delivery Room Air 03/10/22 05:22 03/10/22 04:00 03/10/22 06:00 Temperature 98.6 F Pulse Rate 76 53 L 53 L Respiratory Rate 20 Blood Pressure 127/43 L Pulse Oximetry 99 Oxygen Delivery 03/10/22 04:00 03/10/22 08:00 03/10/22 09:17 Temperature 97.8 F Pulse Rate 54 L 57 L Respiratory Rate 20 Blood Pressure 132/78 Pulse Oximetry 95 Oxygen Delivery Room Air Intake/Output Intake/Output: Intake & Output 03/08/22 03/09/22 03/09/22 03/10/22 00:59 00:59 23:59 23:59 Intake Total 1540 Output Total 350 Balance 1190 Meds/Results Medications: Active Medications Generic Name Dose Route Start Last Admin Trade Name Freq PRN Reason Stop Dose Admin Acetaminophen 650 mg 03/08/22 08:33 03/08/22 08:40 Acetaminophen 325 Mg Tablet PO 650 mg Q6H PRN Administration Mild Pain (1-3) or Fever Aspirin 325 mg 03/08/22 13:00 03/10/22 09:17 Aspirin 325 Mg Enteric Tablet PO 325 mg QAM LESIA Administration Benzonatate 200 mg 03/09/22 19:05 03/10/22 09:17 Benzonatate 100 Mg Capsule PO 200 mg TID LESIA Administra
--- NOTE | 2022-03-10 11:46 | PM.DS ---
DS: Admitting Diagnosis Discharge Date 03/10/2022 Admitting Diagnosis palpitation DS: Discharge Diagnosis Discharge Diagnosis (1) Paroxysmal atrial flutter: Code(s): I48.92 - Unspecified atrial flutter Status: Acute (2) SVT (supraventricular tachycardia): Code(s): I47.1 - Supraventricular tachycardia Status: Acute (3) Cough: Code(s): R05.9 - Cough, unspecified Status: Acute (4) DREW (generalized anxiety disorder): Onset Date: 07/14/17 Code(s): F41.1 - Generalized anxiety disorder Status: Acute (5) Hypothyroidism: Onset Date: 08/19/17 Code(s): E03.9 - Hypothyroidism, unspecified Status: Acute DS: Summary Hospital Course Hospital Course: # Paroxysmal atrial flutter: Echo unremarkable Continue Eliquis and sotalol on telemetry loaded with sotalol by Cardiology. Used to be on metoprolol prior to this. On aspirin 325 mg for stroke prophylaxis. # cough recurrent treated with Augmentin x2 azithromycin x1 in the past. Chest x-ray has been negative. CT chest was done here which showed right lower lobe ground-glass opacities suggestive of atypical pneumonia versus reactive airway disease. Will give a course of doxycycline for 7 days Also added on fluticasone Follow-up with Pulmonary for further workup for possible reactive airway disease Also suggested fluticasone nasal spray [id number] # generalized anxiety disorder: On lorazepam in the morning and clorazepate at night #Hypothyroidism: TSH normal. continue with levothyroxine. #Right lower lobe patchy infiltrate: Treat for atypical pneumonia versus reactive airway disease as delineated above Time Spent with Patient Time attestation: Total time spent providing and/or coordinating discharge services: 35 minutes DS: Data Data Completed and Pending Completed studies during hospitalization: Exam Type: ? ? CA echo doppler color flow Study Info Indications ?? ? - irregular heart Complete two-dimensional, color flow and Doppler transthoracic echocardiogram is performed. Account #: ? ? [id number] Summary ? 1. Complete two-dimensional, color flow and Doppler transthoracic echocardiogram is performed. ? 2. Left ventricular chamber dimension is normal. ? 3. Left ventricular systolic function is normal, estimated at 60-65%. ? 4. The left ventricular diastolic function is normal. ? 5. E/e' 6 is not elevated. ? 6. Left atrial chamber dimension is mildly enlarged. ? 7. There is mild mitral valve regurgitation. Left Ventricle ? E/e' 6 is not elevated. ? Left ventricular chamber dimension is normal. ? Left ventricular systolic function is normal, estimated at 60-65%. ? The left ventricular diastolic function is normal. Right Ventricle ? Right ventricular systolic function is normal and with normal TAPSE 2.1 cm. ? Right ventricular chamber dimension is normal. Left Atria ? Left atrial chamber dimension is mildly enlarged. Right Atria ? Right atrial chamber dimension is normal. Aortic Valve ? The aortic valve is trileaflet. ? There is no aortic valve stenosis. ? There is no aortic valve regurgitation. Pulmonic Valve ? There is no pulmonic regurgitation. Mitral Valve ? There is no mitral valve stenosis. ? There is mild mitral valve regurgitation. Tricuspid Valve ? There is no tricuspid valve regurgitation. Pericardium/Pleural ? There is no pericardial effusion. Inferior Vena Cava ? Normal inferior vena cava with >50% collapse upon inspiration consistent with normal right atrial pressure, 5 mmHg. Aorta ? The aortic root size at the sinus of Valsalva is normal. Labs on day of discharge: Labs from last 24 hours 03/10/22 03/10/22 04:29 04:29 WBC 6.0 RBC 4.58 Hgb 12.2 Hct 38.9 MCV 84.9 MCH 26.6 MCHC 31.4 L RDW 13.1 Plt Count 241 MPV 9.3 Sodium 141 Potassium 4.1 Chloride 105 Carbon Dioxide 27 Anion Ga
== END 2022-03-10 13:57 | disposition home or self-care (01) | DRG 308 ==
PROVIDERS: Nurse Practitioner; Admitting Provider Family Medicine; PCP Physician Assistant; Visit Provider Internal Medicine
DX: I48.92 Unspecified atrial flutter (principal); J18.9 Pneumonia, unspecified organism; I48.91 Unspecified atrial fibrillation; I47.1 Supraventricular tachycardia; J45.909 Unspecified asthma, uncomplicated; F41.1 Generalized anxiety disorder; E03.9 Hypothyroidism, unspecified; R05.9 Cough, unspecified; Z20.822 Contact with and (suspected) exposure to COVID-19; R77.8 Other specified abnormalities of plasma proteins; J40 Bronchitis, not specified as acute or chronic; Z90.49 Acquired absence of other specified parts of digestive tract
CPT/HCPCS: 36415; 71250; 80048; 80053; 82565; 83605; 83735; 84439; 84443; 84480; 84484; 85025; 85027; 85049; 87637; 93005; 93306; 94640; A9270; G0378; G0379; J1650

== ENCOUNTER 2022-03-17 14:10 | Outpatient (CLI) | payer OTHER, SELFPAY ==
--- NOTE | 2022-03-17 14:19 | ECG_ITS ---
Measurements Intervals [place] Rate: 54 P: 37 [place]: 167 QRS: 16 QRSD: 88 T: -10 QT: 397 QTc: 377 Interpretive Statements SINUS BRADYCARDIA LOW QRS VOLTAGE IN PRECORDIAL LEADS BORDERLINE ST-T WAVE ABNORMALITY- DIFFUSE LEADS BASELINE ARTIFACT- II, III, AVF BORDERLINE ECG COMPARED TO ECG 03/10/2022 10:22:16 NO SIGNIFICANT CHANGES Electronically Signed On 03-17-2022 14:48:14 TRANSPLANT RN by Aurelio Christie D.O.
== END 2022-03-17 14:11 | disposition home or self-care (01) ==
LOC: CHSLAB 14:13
PROVIDERS: Visit Provider Internal Medicine Cardiovascular Disease
DX: I48.0 Paroxysmal atrial fibrillation (principal)
CPT/HCPCS: 93005

== ENCOUNTER 2022-04-07 11:49 | Outpatient (CLI) | payer OTHER, SELFPAY ==
--- NOTE | 2022-04-07 11:54 | EST_ITS ---
Patient Info Name: Maria Fernanda Darnell Age: 62 years : 1960 Gender: Female Ht: 63 in Wt: 213 lbs BSA: 2.12 m2 Exam Date: 04/07/2022 1:18 PM Exam Location: [facility] Patient Status: Outpatient Admit Date: 04/07/2022 Staff Ordering Physician: Aurelio Christie DO Attending Provider: Aurelio Christie DO Exam Type: CA stress magdiel w NM Summary 1. 1. Negative lexiscan stress test for ischemic ST changes by ECG criteria. 2. 2. Baseline hypertension. 3. 3. Nuclear scan to follow and will be reported separately. Please correlate with it. 4. 4. Patient informed of the above results. Protocol: LEXISCAN Stress ECG Details Stage: REST Duration (min): 2 min : 39 sec HR (bpm): 56 SBP (mmHg): 154 DBP (mmHg): 60 Stage: REST Duration (min): 6 min : 5 sec HR (bpm): 57 SBP (mmHg): 154 DBP (mmHg): 60 Stage: STAGE 1 Duration (min): 0 min : 12 sec HR (bpm): 59 SBP (mmHg): 154 DBP (mmHg): 60 Stage: RECOVERY Duration (min): 0 min : 47 sec HR (bpm): 84 SBP (mmHg): 154 DBP (mmHg): 60 Stage: RECOVERY Duration (min): 1 min : 47 sec HR (bpm): 83 SBP (mmHg): 154 DBP (mmHg): 60 Stage: RECOVERY Duration (min): 2 min : 47 sec HR (bpm): 79 SBP (mmHg): 173 DBP (mmHg): 63 Stage: RECOVERY Duration (min): 3 min : 47 sec HR (bpm): 77 SBP (mmHg): 173 DBP (mmHg): 63 Stage: RECOVERY Duration (min): 4 min : 47 sec HR (bpm): 71 SBP (mmHg): 134 DBP (mmHg): 66 Stage: RECOVERY Duration (min): 5 min : 47 sec HR (bpm): 70 SBP (mmHg): 134 DBP (mmHg): 66 Stage: RECOVERY Duration (min): 6 min : 47 sec HR (bpm): 72 SBP (mmHg): 108 DBP (mmHg): 67 Stage: RECOVERY Duration (min): 6 min : 52 sec HR (bpm): 77 SBP (mmHg): 108 DBP (mmHg): 67 Rest HR: 57 bpm Peak HR: 85 bpm Rest Sys BP: 154 mmHg Peak Sys BP: 173 mmHg Max Pred HR: 159 bpm % Max Pred HR: 53 % Target HR: 135 bpm Max RPP: 14,705 bpm*mmHg Termination Reason: Completed protocol Cardiac Symptoms: Shortness of breath Total Time: 0 min : 12 sec Rest Padilla BP: 60 mmHg Peak Padilla BP: 63 mmHg Total Dose: 0.4 mg Resting ECG Sinus rhythm, low voltage in precordial leads, borderline ST-T wave in anterior leads. Stress ECG No ST changes. Arrhythmias None. Report Signatures
--- NOTE | 2022-04-07 16:30 | WPDCARIOSTRE ---
Nuclear Stress Test INDICATIONS Indications: Chest pain PROCEDURE Procedure Performed: Myocardial Perf Spect-Multi Procedure: Patient underwent a lexiscan stress test and immediately was injected with 30 mCi of cardiolyte. Multiple tomographic images were obtained. These are of good quality. There is no evidence of decrease perfusion noted during stress imaging. A separate resting images were obtained after patient was injected with 10.3 mCi of cardiolyte. Multiple tomographic images were obtained. These are of good quality. There is no evidence of decrease perfusion noted during rest imaging. CONCLUSION Conclusion: 1. Normal myocardial perfusion imaging demonstrating no perfusion defects during stress or rest imaging. 2. No evidence of reversible ischemia. 3. Left ventriculogram demonstrates normal measured ejection fraction of 73% with no wall motion abnormalities. 4. TID score is normal at 1.08.
== END 2022-04-07 11:50 | disposition home or self-care (01) ==
LOC: CHSCARD 11:51
PROVIDERS: PCP Physician Assistant; Visit Provider Internal Medicine Cardiovascular Disease
DX: I48.0 Paroxysmal atrial fibrillation (principal)
CPT/HCPCS: 78452; 93017; A9502; J2785

== ENCOUNTER 2022-05-08 08:31 | Outpatient (CLI) | payer OTHER, SELFPAY ==
--- NOTE | 2022-05-19 17:09 | WPDHOMESLEEP ---
Sleep Study - Home Unattended Date of Study: 05/08/22 Ordering Provider: Aurelio Christie DO Interpreting Provider: Whitney Trevino DO Home Sleep Study Type: Watch PAT Height: 1.6 m Weight: 95.708 kg Body Mass Index: 37.3 Neck Circumference (inches): 13.75 [place]: 2 Reason for Sleep Study paroxysmal SVT and paroxysmal atrial flutter Sleep History The patient is a 62-year-old female with paroxysmal atrial flutter, anxiety, hypothyroidism and history of supraventricular tachycardia that had a sleep study ordered by her operating theatre technician for evaluation of sleep apnea. The patient denies awakening from sleep short of breath. She rarely awakens at night with heartburn, belching or cough. She occasionally snores but it is never loud enough that others complain. She occasionally has trouble sleeping when she has a cold. She denies waking up gasping for air throughout the night. She denies having breathing problems at night observed by herself or others. She denies sweating excessively at night. She occasionally has heart palpitations or irregular heartbeats during the night. She rarely falls asleep during the day but never while driving. She denies sleep paralysis and cataplexy. She denies having trouble at school or work due to sleepiness. He rarely experiences vivid dreamlike scenes upon awakening or falling asleep. She denies feeling afraid of going to sleep. She rarely has nightmares and rarely remembers her dreams. She occasionally has thoughts racing through her mind. She rarely feels sad or depressed. She occasionally has anxiety. She denies having muscular tension. She rarely notices parts of her body jerk. She denies kicking during the night. She denies having leg pain during the night. She denies awakening with morning jaw pain. She denies being bothered by pain during the day and denies being awakened by pain during the night. She occasionally wakes up feeling stiff in the morning. She denies waking up with sore or achy muscles. She denies waking up with pain in the neck, spine or other joints. She goes to bed at 10:00 p.m. on both weekdays and weekends. It takes her 10-15 minutes to fall asleep. She wakes up once throughout the night to urinate. She is able to fall back asleep within 15 minutes. She wakes up between 4-530 a.m. on weekdays and at 6:00 a.m. on the weekends. She typically gets 5-7 hours of sleep per night. She will stay in bed for 15-20 minutes after waking up in the morning. She currently lives with her and adult son. She denies consuming caffeinated beverages within 2 hours of bedtime. She denies engaging in physical exercise before bedtime. She will watch television before falling asleep. She denies taking naps in the afternoon or the evening. She denies consuming caffeinated beverages throughout the day. She is a former smoker. She denies alcohol and recreational drug use. [facility] Past Medical History Medical History DREW (generalized anxiety disorder) (07/14/17) Hypothyroidism (08/19/17) SVT (supraventricular tachycardia) Surgical History Surgical History History of section Hx of cholecystectomy Family History Family History Father Hypertension Family history of coronary artery disease Social History Social History Social History: The patient lives with her and they have 1 child. The patient is a lifelong nonsmoker. She works an office doing bookkeeping. She does not drink or use illicit drugs. Her is a durable power state attorney for healthcare. Code status full code Smoking status: Never smoker Second hand tobacco smoke exposure: No Alcohol intake: never Substance use: current Substance use type: prescriptio
[2022-05-19 17:20] VITALS: BMI 37.3
== END 2022-05-09 11:14 | disposition home or self-care (01) ==
PROVIDERS: PCP Physician Assistant; Visit Provider Internal Medicine Cardiovascular Disease
DX: G47.10 Hypersomnia, unspecified (principal); G47.33 Obstructive sleep apnea (adult) (pediatric)
CPT/HCPCS: 95800

== ENCOUNTER 2022-12-17 09:42 | Outpatient (CLI) | payer OTHER, SELFPAY ==
--- NOTE | 2022-12-17 09:49 | ECG_ITS ---
Measurements Intervals [place] Rate: 62 P: 27 IL: 150 QRS: 20 QRSD: 102 T: -10 QT: 408 QTc: 416 Interpretive Statements SINUS RHYTHM LOW QRS VOLTAGE IN PRECORDIAL LEADS ST DEVIATION AND MODERATE T-WAVE ABNORMALITY, CONSIDER ANTERIOR ISCHEMIA ABNORMAL ECG COMPARED TO ECG 03/17/2022 14:40:38 HEART RATE HAS INCREASED Electronically Signed On 12-17-2022 12:22:16 CDT by Rigo Mederos M.D.
== END 2022-12-17 09:43 | disposition home or self-care (01) ==
PROVIDERS: PCP Physician Assistant; Visit Provider Specialist
DX: I47.1 Supraventricular tachycardia (principal); I48.0 Paroxysmal atrial fibrillation; R94.31 Abnormal electrocardiogram [ECG] [EKG]
CPT/HCPCS: 93005

== ENCOUNTER 2023-01-26 14:32 | Outpatient (CLI) | payer OTHER, SELFPAY ==
--- NOTE | 2023-01-26 14:44 | ECHO_ITS ---
Patient Info Name: Maria Fernanda Darnell Age: 63 years : 1960 Gender: Female Ht: 62 in Wt: 200 lbs BSA: 2.04 m2 HR: 62 bpm Heart Rhythm: Sinus Rhythm Technical Quality: Good Exam Date: 01/26/2023 2:36 PM Exam Location: [facility] Patient Status: Outpatient Admit Date: 01/26/2023 Staff Ordering Physician: Chris Todd MD Cold Roll Operator: Milan Bowman RDCS Attending Provider: Chris Todd MD Referring Physician: Perez KINNEY; Exam Type: CA echo doppler color flow Study Info Indications - Liu cardia/paroxysmal SVT Complete two-dimensional, color flow and Doppler transthoracic echocardiogram is performed. Summary 1. Complete two-dimensional, color flow and Doppler transthoracic echocardiogram is performed. 2. Left ventricular chamber dimension is normal. 3. Left ventricular systolic function is normal, estimated at 60-65%. 4. The left ventricular diastolic function is grade III diastolic dysfunction. 5. E/e' 10 is mildly elevated. 6. Left atrial chamber dimension is moderately enlarged. 7. There is mild mitral valve regurgitation. 8. There is trace tricuspid valve regurgitation. 9. No pulmonary hypertension, estimated pulmonary arterial systolic pressure is 32 mmHg. Left Ventricle E/e' 10 is mildly elevated. Left ventricular chamber dimension is normal. Left ventricular systolic function is normal, estimated at 60-65%. The left ventricular diastolic function is grade III diastolic dysfunction. Right Ventricle Right ventricular systolic function is normal and with normal TAPSE 3.8 cm. Right ventricular chamber dimension is normal. Left Atria Left atrial chamber dimension is moderately enlarged. Right Atria Right atrial chamber dimension is normal. Aortic Valve The aortic valve is trileaflet. There is no aortic valve stenosis. There is no aortic valve regurgitation. Pulmonic Valve There is no pulmonic regurgitation. Mitral Valve There is no mitral valve stenosis. There is mild mitral valve regurgitation. Tricuspid Valve There is trace tricuspid valve regurgitation. No pulmonary hypertension, estimated pulmonary arterial systolic pressure is 32 mmHg. Pericardium/Pleural There is no pericardial effusion. Inferior Vena Cava Normal inferior vena cava with >50% collapse upon inspiration consistent with normal right atrial pressure, 5 mmHg. Aorta The aortic root size at the sinus of Valsalva is normal. Left Ventricular Outflow Tract Name Value Normal LVOT 2D LVOT Diameter 1.9 cm LVOT Doppler LVOT Peak Velocity 129 cm/s LVOT Peak Gradient 7 mmHg LVOT Mean Gradient 3 mmHg LVOT VTI 32 cm LVOT VTI/AV VTI Ratio 0.9 LVOT Stroke Volume 93 ml Pulmonic Valve Name Value Normal RVOT Doppler RVOT Peak Gradient 2 mmHg PV Doppler
== END 2023-01-26 14:33 | disposition home or self-care (01) ==
LOC: CHSIMG 14:35
PROVIDERS: Visit Provider Specialist
DX: I47.1 Supraventricular tachycardia (principal); E03.9 Hypothyroidism, unspecified; R00.1 Bradycardia, unspecified; R93.1 Abnormal findings on diagnostic imaging of heart and coronary circulation
CPT/HCPCS: 93306

== ENCOUNTER 2023-06-12 07:10 | Outpatient (CLI) | payer OTHER, SELFPAY ==
--- NOTE | ~2023-06-12 | MM_ITS ---
EXAMINATION: MM screening [place] BI w janene HISTORY: Screening mammogram TECHNIQUE: Craniocaudal and mediolateral oblique 3-D tomosynthesis images were obtained and synthetic 2-D images were generated. CAD analysis was submitted and interpreted. COMPARISON: 02/26/2022 bilateral screening mammogram BREAST PARENCHYMAL COMPOSITION: The breasts are almost entirely fatty. FINDINGS: Biopsy marker on the left; history of prior benign left breast biopsy. There is no evidence of suspicious mass, calcification, or architectural distortion to suggest malignancy in either breas t. There has been no suspicious interval change. IMPRESSION: 1. No mammographic evidence of malignancy. 2. Recommend routine screening mammography in one year. BI-RADS Category 1: Negative Reviewed, dictated and finalized at location A. OMER SERVICE SALES ASSOCIATE
== END 2023-06-12 07:11 | disposition home or self-care (01) ==
LOC: CHSIMG 07:11
PROVIDERS: PCP Physician Assistant; Visit Provider Physician Assistant
DX: Z12.31 Encounter for screening mammogram for malignant neoplasm of breast (principal)
CPT/HCPCS: 77063; 77067

== ENCOUNTER 2025-03-16 07:12 | Outpatient (CLI) | payer OTHER, SELFPAY ==
--- NOTE | ~2025-03-16 | MM_ITS ---
EXAMINATION: MM screening [facility] BI w janene HISTORY: Screening TECHNIQUE: Craniocaudal and mediolateral oblique 3-D tomosynthesis images were obtained and synthetic 2-D images were generated. CAD analysis was submitted and interpreted. COMPARISON: Comparison to multiple prior studies sequentially, with oldest reviewed study dated 10/20/2017. BREAST PARENCHYMAL COMPOSITION: Not Dense. The breasts are almost entirely fatty. FINDINGS: There is no evidence of suspicious mass, calcification, or architectural distortion to suggest malignancy in either breast. There has been no suspicious interval change. IMPRESSION: 1. No mammographic evidence of malignancy. 2. Recommend routine screening mammography in one year. BI-RADS Category 1: Negative Reviewed, dictated and finalized at location B. TCHER HELPER
--- OUTSIDE RECORDS SUMMARY | 2025-03-16 07:15 | XMS_ITS | Clinical Summary ---
Author Organization [facility] Address [address] [place] [address] Phone Care Team Providers Care Medical Records Tech Name Role Phone Tomasa Bashir ACUÑA Primary Care Provider Unavailab le Allergies No known active allergies Medications LORazepam (ATIVAN) 1 mg tablet Take 1 mg by mouth. Active clorazepate (TRANXENE) 7.5 mg tablet Take 7.5 mg by mouth. Active metoprolol tartrate (LOPRESSOR) 25 mg tablet TAKE 1 TABLET BY MOUTH TWICE A DAY 12/07/2018 Active Active Problems No known active problems Family History Medical History Relation Name Comments Melanoma Father Relation Name Status Comments Father Social History Tobacco Use Types Packs/Day Years Used Date Smoking Tobacco: Never Smokeless Tobacco: Never Comments No Sex and Gender Information Value Date Recorded Sex Assigned at Not on file Legal Sex Female 9:37 AM CDT Gender Identity Not on file Sexual Orientation Not on file Last Filed Vital Signs Vital Sign Reading Time Taken Comments Blood Pressure 151/92 01/24/2019 3:20 PM CDT Pulse 65 01/24/2019 3:20 PM CDT Temperature - - Respiratory Rate - - Oxygen Saturation - - Inhaled Oxygen Concentration - - Weight 100.2 kg (221 lb) 01/24/2019 3:20 PM CDT Height 157.5 cm (5' 2) 01/24/2019 3:20 PM CDT Body Mass Index 40.42 01/24/2019 3:20 PM CDT Plan of Treatment Health Maintenance Due Date Last Done Comments DTAP/TDAP/TD VACCINES (1 - Tdap) 01/24/1980 HPV/Cotest (21-29) 1982 CERVICAL CANCER SCREENING 1991 HPV/Cotest (30-65) 1991 PAP SMEAR 1991 COLORECTAL SCREENING 2006 Colorectal Cancer Screening 2006 FIT-DNA Q 3 years 2006 FIT/FOBT Q 1 year 2006 Flex Sig/CT Colonography Q 5 years 2006 ZOSTER VACCINE (1 of 2) 2011 BREAST CANCER SCREENING 12/24/2019 12/24/19 19, 11/23/2018, 10/20/2017 INFLUENZA VACCINE (#1) 2024 RSV VACCINE (60+ or ) (1 - 1-dose 75+ series) 01/24/2036 Procedures Procedure Name Priority Date/Time Associated Diagnosis Comments MAMMO DIAG UNI LEFT 3D LAURA W OR WO CAD Routine 12/23/2018 from Last 3 Months or Most Recently Relevant to Health Maintenance Results * MAMMO DIAG UNI LEFT 3D LAURA W OR WO CAD (12/23/2018) Anatomical Region Laterality Modality Breast Left Mammography Rubio Busby MD MAMMO ORDERABLES Edited Result - Final from Last 3 Months or Most Recently Relevant to Health Maintenance Insurance [employer] H[employer] Care Teams Medical Records Tech Relationship Specialty Start Date End Date Bashir Randolph, ARIANNE NO ADDRESS ON FILE PCP - General Nurse Practitioner Family 01/24/19
--- OUTSIDE RECORDS SUMMARY | 2025-03-16 07:15 | XMS_ITS | Clinical Summary ---
Author Organization [facility] [place] [address] Address [address] [place] [address] Care Team Providers Care Earth Auger Operator Name Role Phone Bashir Randolph NP Primary Care Provider [phone] Allergies No known active allergies Medications LORazepam (ATIVAN) 1 mg tablet Take 1 mg by mouth every 12 (twelve) hours as needed for anxiety. Active clorazepate (TRANXENE) 7.5 mg tablet Take 7.5 mg by mouth. Taking one the afternoon and two at bedtime Active levothyroxine (SYNTHROID) 25 mcg tablet Take 25 mcg by mouth every other day 1 Active metoprolol tartrate (LOPRESSOR) 25 mg immediate release tablet Take 1 tablet (25 mg total) by mouth 2 (two) times a day 180 tablet 3 1 Active Active Problems Problem Noted Date Diagnosed Date Hypothyroidism 01/11/2021 Other fatigue 11/23/2018 Bradycardia 01/14/2018 Paroxysmal SVT (supraventricular tachycardia) Anxiety 05/08/2017 S/P cholecystectomy 05/08/2017 Surgical History Surgery Date Site/Laterality Comments CHOLECYSTECTOMY SECTION Medical History Medical History Date Comments Anxiety Family History Medical History Relation Name Comments Heart disease Father Multiple myeloma Father Heart disease Mother Stroke Sister Relation Name Status Comments Father (Age 63) Mother Alive Sister Alive Social History Tobacco Use Types Packs/Day Years Used Date Smoking Tobacco: Former Cigarettes Q uit: 05/08/1983 Smokeless Tobacco: Never Alcohol Use Standard Drinks/Week Comments No 0 (1 standard drink = 0.6 oz pur e alcohol) Personal Safety Answer Date Recorded Getting School Help Needed Not on file 07/18 Comments Unknown Sex and Gender Information Value Date Recorded Sex Assigned at Not on file Legal Sex Female 9:14 AM HOSPICE PHYSICIAN Gender Identity Not on file Sexual Orientation Not on file Last Filed Vital Signs Vital Sign Reading Time Taken Comments Blood Pressure 118/80 01/11/2021 8:34 AM CDT Pulse 55 01/11/2021 8:34 AM CDT Temperature - - Respiratory Rate - - Oxygen Saturation 98% 01/11/2021 8:34 AM CDT Inhaled Oxygen Concentration - - Weight 97.6 kg (215 lb 3.2 oz) 01/11/2021 8:34 A M CDT Height 160 cm (5' 3) 01/11/2021 8:34 AM CDT Body Mass Index 38.12 01/11/2021 8:34 AM CDT Plan of Treatment Not on file Insurance [facility] [employer] [facility] HMO/PPO Address: [facility] [id number] [place] [id number] Care Teams Earth Auger Operator Relationship Specialty Start Date End Date Bashir Randolph NP PCP - General Nurse Practitioner 04/06/19
== END 2025-03-16 07:13 | disposition home or self-care (01) ==
LOC: CHSIMG 07:13
PROVIDERS: PCP Physician Assistant; Visit Provider Physician Assistant
DX: Z12.31 Encounter for screening mammogram for malignant neoplasm of breast (principal)
CPT/HCPCS: 77063; 77067